=== PATIENT | female | born 1955 | race African-American/Black ===

== ENCOUNTER 2021-10-13 08:15 | Outpatient (CLI) | payer OTHER ==
[2021-10-13] MEDS ORDERED: GASTROGRAFIN 120 ML ONE ×2 (08:54→09:20)
== END 2021-10-13 19:41 | disposition home or self-care (01) ==
LOC: SRD 08:15
PROVIDERS: ATTEND Surgery
DX: Z09 Encounter for follow-up examination after completed treatment for conditions other than malignant neoplasm (principal); K57.20 Diverticulitis of large intestine with perforation and abscess without bleeding; Z93.2 Ileostomy status
CPT/HCPCS: 74270; Q9963